=== PATIENT | female | born 1970 | race Caucasian/White ===

== ENCOUNTER 2020-07-30 23:35 | Emergency (ER) | payer OTHER ==
[~2020-07-30 23:35] MED LIST: BIOTIN10000 MCG PO; CERTAGEN1 EACH PO; CETIRIZINE HCL5 M1 PO; CRESTOR20 MG PO; OS-CAL500 MG PO; PRINIVIL10 MG PO; VITAMIN D5000 UNIT PO
[2020-07-31 03:45] LABS: AMPHETAMINES NEGATIVE (NEGATIVE); BARBITURATES NEGATIVE (NEGATIVE); ECSTASY (MDMA) NEGATIVE (NEGATIVE); MARIJUANA (THC) NEGATIVE (NEGATIVE); METHADONE NEGATIVE (NEGATIVE); OPIATES NEGATIVE (NEGATIVE); OXYCODONE NEGATIVE (NEGATIVE)
== END 2020-07-31 03:54 | disposition home or self-care (01) ==
LOC: FER 23:35
PROVIDERS: Student in an Organized Health Care Education/Training Program
DX: S00.511A Abrasion of lip, initial encounter (principal); S80.212A Abrasion, left knee, initial encounter; K03.81 Cracked tooth; R07.9 Chest pain, unspecified; M79.641 Pain in right hand; I10 Essential (primary) hypertension; Z88.1 Allergy status to other antibiotic agents; Z79.899 Other long term (current) drug therapy; W19.XXXA Unspecified fall, initial encounter; Y92.9 Unspecified place or not applicable; Y99.0 Civilian activity done for income or pay
CPT/HCPCS: 73564; 80305